=== PATIENT | female | born 2000 | race Caucasian/White ===

== ENCOUNTER → 2024-09-09 14:42 | Outpatient (CLI) | payer OTHER, SELFPAY ==
--- NOTE | 2024-09-09 14:47 | DI.ECHO.S_ITS ---
[facility] : : [address] : : [place] : : [id number] : : Phone: [phone] Echocardiogram Report + + :Name: BRIDGET PÉREZ Study Date: 09/09/2024 Height: 64 in : :[facility] ReadingLocation: Weight: 115 lb : : Gender: Female BSA: 1.5 m2 : :: 2000 Age: 23 yrs BP: 120/82 mmHg: :Reason For Study: ISCHEMIC HEART DISEASE : :Ordering Physician: VANSESA, : :SHER Performed By: Bobby Esteban : :Referring: SHER MENDEZ : + + Interpretation Summary The ejection fraction is estimated to be 50-55%. The right ventricle is normal in size and function. Pulmonary artery pressures cannot be estimated because of the lack of a measurable TR jet velocity but the IVC suggests a CVP of around 3 mmHg. No significant valvular abnormality. Procedure: A two-dimensional transthoracic echocardiogram with color flow and Doppler was performed. The study quality was technically good. There is no prior echocardiogram noted for this patient. The patient was in normal sinus rhythm during the exam. Left Ventricle: The left ventricle is normal in size. There is normal left ventricular wall thickness. There is no ventricular septal defect visualized. The ejection fraction is estimated to be 50-55%. There are no focal wall motion abnormalities. Diastolic parameters suggest probable normal left ventricular diastolic function and normal filling pressures. Right Ventricle: The right ventricle is normal in size and function. Atria: The left atrial size is normal. Right atrial size is normal. There is no Doppler evidence for an interatrial shunt. Mitral Valve: The mitral valve leaflets appear normal. There is no evidence of stenosis, fluttering, or prolapse. There is trace mitral regurgitation. Aortic Valve: The aortic valve is trileaflet. The aortic valve opens well. There is no aortic valve stenosis. No aortic regurgitation is present. Tricuspid Valve: The tricuspid valve leaflets are thin and pliable. No tricuspid regurgitation. Pulmonary artery pressures cannot be estimated because of the lack of a measurable TR jet velocity but the IVC suggests a CVP of around 3 mmHg. Pulmonic Valve: The pulmonic valve leaflets are thin and pliable; valve motion is normal. There is no pulmonic valvular regurgitation. Great Vessels: The aortic root is normal size. The dimensions of the ascending aorta are normal. The pulmonary artery is normal size. The IVC is of normal diameter and collapses greater than 50% with a sniff. This suggests a low right atrial pressure of 3 mm Hg. Pericardium/ Pleura There is no pericardial effusion. There is no pleural effusion. MMode/2D Measurements & Calculations LVIDd: 4.7 cm LVOT diam: 1.8 cm LVIDs: 3.4 cm Ao root diam: 2.8 cm FS: 27.1 % asc Aorta Diam: 2.9 cm EPSS: 0.45 cm Ao Arch Diam (Prox Trans): 1.9 cm IVSd: 0.66 cm LVPWd: 0.75 cm LV reynaga. diameter/BSA (cm/m^2): 3.0 LV sys. diameter/BSA (cm/m^2): 2.2 LA A2 area: 12.8 cm2 RA long axis: 4.1 cm LA A4 area: 12.1 cm2 RA area: 10.5 cm2 LA length (vol): 4.9 cm RA vol: 22.9 ml LA vol: 27.1 ml RA : 14.8 ml/m2 LA vol index: 17.5 ml/m2 IVC diam: 1.6 cm RVD1 (basal): 3.3 cm RVD2 (mid): 2.4 cm Doppler Measurements & Calculations Ao V2 max: 145.3 cm/sec LVOT Max German: 121.1 cm/sec Ao V2 mean: 107.0 cm/sec LV V1 max P.9 mmHg Ao max P.4 mmHg LV V1 VTI: 26.4 cm Ao mean P.9 mmHg ELIAS(I,D): 2.0 cm2 Ao V2 VTI: 31.8 cm ELIAS(V,D): 2.0 cm2 sev ratio: 0.83 ELIAS indexed to BSA (cm^2/m^2): 1.3 MV E max german: 90.0 cm/sec PA V2 max: 108.8 cm/sec MV A max german: 32.9 cm/sec PA V2 mean: 71.8 cm/sec MV E/A: 2.7 PA mean P.4 mmHg Med Peak E' German: 13.8 cm/sec E/E' med: 6.5 Lat Peak E' German: 20.2 cm/sec E/E' lat: 4.4 E/e' average: 5.5 MV dec time: 0.17 sec SV(OT): 64.2 ml Reading Physician:06:12 PM
== END ==
PROVIDERS: Referring Provider Chiropractor; Visit Provider Chiropractor
DX: I25.9 Chronic ischemic heart disease, unspecified (principal)
CPT/HCPCS: 93306